=== PATIENT | male | born 1975 | race Caucasian/White ===

== ENCOUNTER 2023-07-27 19:55 | Emergency (ER) | payer SELFPAY ==
[2023-07-27] MEDS ORDERED: SODIUM CHLORIDE 1,000 ML IV STA (20:04)
[2023-07-27 20:19] LABS: HEMATOCRIT 49.7 % (35.4-49); HEMOGLOBIN 16.9 G/dL (11.7-16.9); MCHC 33.9 g/dl (32.0-35.9); MEAN CELL VOLUME 88.6 fl (80-96); MEAN PLT VOLUME 8.4 fl (7.5-11.1); PLATELET COUNT 221.4 10^3/uL (134-434); RBC 5.61 10^6/uL (4.00-5.60)
[2023-07-27 20:20] VITALS: BP 121/74; PULSE 90; RESP 17; TEMP 97.8; BMI 71.1
[2023-07-27 20:32] LABS: PLATELET ESTIMATE ADEQUATE
[2023-07-27 20:49] LABS: ALBUMIN 4.2 g/dl (3.4-5.0); BILIRUBIN,TOTAL 0.4 mg/dl (0.2-1); CALCIUM 8.8 mg/dl (8.5-10.1); CREATININE 0.5 mg/dl (0.6-1.3); POTASSIUM 3.9 mmol/L (3.5-5.1); TOT PROT 7.5 g/dl (6.4-8.2)
== END 2023-07-28 00:11 | disposition home or self-care (01) ==
LOC: FER 19:55
PROC: 3E0337Z Introduction of Electrolytic and Water Balance Substance into Peripheral Vein, Percutaneous Approach (ICD-10-PCS; principal; 2023-07-27)
DX: F10.920 Alcohol use, unspecified with intoxication, uncomplicated (principal); R11.10 Vomiting, unspecified; Y90.8 Blood alcohol level of 240 mg/100 ml or more
CPT/HCPCS: 36415; 80053; 80307; 85027; 99284-25